=== PATIENT | male | born 1995 | race Caucasian/White ===

== ENCOUNTER 2017-04-19 23:18 | Emergency (ER) | payer OTHER ==
[~2017-04-19] VITALS: Ht 177.8 cm; Wt 82.7 kg
[2017-04-19 23:32] VITALS: TEMP 36.9; Ht 177.8 cm; Wt 82.7 kg
[2017-04-20 00:03] LABS: BASO % 0.3 %; BASO ABS # 0.03 K/uL (0-0.2); COMPLETE YES; HEMATOCRIT 44.8 % (42-52); IG% 0.3 %; LYMPH ABS # 3.81 K/uL (1.2-3.4); MEAN CELL VOLUME 89.1 fL (80-100); MEAN CORPUSCULAR HEMOGLOBIN 31.2 pg (25-34); MONO % 7.7 %; NEUT % 51.7 %; PLATELET COUNT 215 K/uL (130-400); RED BLOOD COUNT 5.03 M/uL (4.7-6.1); WHITE BLOOD COUNT 10.03 K/uL (4.8-10.8)
[2017-04-20 00:21] LABS: BUN/CREATININE RATIO 17.7 (10-20); CREATININE 1.29 mg/dl (0.60-1.40)
[2017-04-20 00:23] LABS: ALB/GLOB RATIO 1.1 (0.9-2)
[2017-04-20 01:13] LABS: URINE APPEARANCE CLEAR (CLEAR); URINE BILIRUBIN NEG (NEG); URINE COLOR YELLOW; URINE NITRITE NEG (NEG); URINE SPECIFIC GRAVITY 1.013 (1.000-1.030); UROBILINOGEN NEG (NEG); ZZUR CULT IF INDIC CLEAN CATCH NO
[2017-04-20 01:18] LABS: MANUAL MICROSCOPIC REQUIRED? NO; REVIEW REQ? NO
[2017-04-20 01:22] VITALS: BP 116/55; PULSE 80; O2SAT 95
[2017-04-20] MEDS ORDERED: KETOROLAC TROMETHAMINE 30 MG/ML VIAL IV STA (01:27)
--- NOTE | 2017-04-20 01:29 | EMERGENCY ROOM VISIT NOTE ---
History Report prepared by Rico: Isabela Pollard Under the Supervision of: Dr. Demetrice Casas D.O. First contact with patient: 23:41 Chief Complaint: ABDOMINAL PAIN Stated Complaint: PAIN IN LOWER STOMACH TO THE LEFT Nursing Triage Summary: pt c/o lower left abd pain for past 3 days and pain is increasing, History of Present Illness The patient is a 21 year old male who presents to the Emergency Room with complaints of intermittent LLQ abdominal pain starting 3 days ago. The pain started while he was working out at the gym. He notes that he notices the pain when he is sitting down. When he stands up, the pain decreases. The pain is always in the same spot. He denies any diarrhea, constipation, urinary symptoms , chills, back pain, cough, fever, vomiting, or cold symptoms. He does not have any medical problems. Source of History: patient Onset: 3 days ago Position: abdomen (LLQ) Quality: other (pain) Timing: intermittent Modifying Factors (Worsening): other (sitting) Modifying Factors (Relieving): other (standing) Associated Symptoms: No fevers, No chills, No cough, No vomiting, No back pain, No diarrhea, No urinary symptoms Note: Pt denies constipation. Review of Systems See HPI for pertinent positives & negatives. A total of 10 systems reviewed and were otherwise negative. Past Medical & Surgical Medical Problems: (1) No chronic problems Family History No pertinent family history stated. Social History Smoking Status: Never Smoker Marital Status: single Occupation Status: student Current/Historical Medications No Active Prescriptions or Reported Meds Allergies Coded Allergies: Grass (Unverified Allergy, Intermediate, HIVES, 04/19/17) Physical Exam Vital Signs Date Time Temp Pulse Resp B/P (MAP) Pulse Ox O2 Delivery O2 Flow Rate FiO2 04/20/17 01:22 80 116/55 95 Room Air 04/19/17 23:32 36.9 76 18 114/52 99 Room Air Physical Exam GENERAL: alert, well appearing, well nourished, no distress, non-toxic EYE EXAM: normal conjunctiva, PERRL and EOM's grossly intact OROPHARYNX: no exudate, no erythema, lips, buccal mucosa, and tongue normal and mucous membranes are moist NECK: supple, no nuchal rigidity, no adenopathy, non-tender LUNGS: Clear to auscultation. Normal chest wall mechanics HEART: no murmurs, S1 normal and S2 normal ABDOMEN: abdomen soft, reproducible left lateral abdominal pain, normo-active bowel sounds, no masses, no rebound or guarding. BACK: Back is symmetrical on inspection and there is no deformity, no midline tenderness, no CVA tenderness. SKIN: no rashes and no bruising UPPER EXTREMITIES: upper extremities are grossly normal. LOWER EXTREMITIES: No pitting edema. NEURO EXAM: Normal sensorium, cranial nerves II-XII grossly intact, normal speech, no gross weakness of arms, no gross weakness of legs. Medical Decision & Procedures ER Provider Diagnostic Interpretation: Xray results have been interpreted by me. KUB X-ray: Scattered air and stool. No definite SBO. No bony abnormality noted. Laboratory Results 04/19/17 23:50 Red Blood Count 5.03, Mean Corpuscular Volume 89.1, Mean Corpuscular Hemoglobin 31.2, Mean Corpuscular Hemoglobin Concent 35.0, Mean Platelet Volume 11.0, Neutrophils (%) (Auto) 51.7, Lymphocytes (%) (Auto) 38.0, Monocytes (%) (Auto) 7.7, Eosinophils (%) (Auto) 2.0, Basophils (%) (Auto) 0.3, Neutrophils # (Auto) 5.19, Lymphocytes # (Auto) 3.81, Monocytes # (Auto) 0.77, Eosinophils # (Auto) 0.20, Basophils # (Auto) 0.03 04/19/17 23:50 Test 04/19/17 23:50 04/20/17 01:00 White Blood Count 10.03 K/uL (4.8-10.8) Red Blood Count 5.03 M/uL (4.7-6.1) Hemoglobin 15.7 g/dL (14.0-18.0) Hematocrit 44.8 % (42-52) Mean Corpuscular Volume 89.1 fL (80-100) Mean Corpuscular Hemoglobin 31.2 pg (25-34) Mean Corpuscular Hemoglobin Concent 35.0 g/dl (32-36) Platelet Count 215 K/uL (130-400) Mean Platelet Volume 11.0 fL (7.4-10.4) Neutrophils (%) (Auto) 51.7 % Lymphocytes (%) (Auto) 38.0 % Monocytes (%) (Auto) 7.7 % Eosinophils (%) (Auto) 2.0 % Basophils (%) (Auto) 0.3 % Neutrophils # (Auto) 5.19 K/uL (1.4-6.5) Lymphocytes # (Auto) 3.81 K/uL (1.2-3.4) Monocytes # (Auto) 0.77 K/uL (0.11-0.59) Eosinophils # (Auto) 0.20 K/uL (0-0.5) Basophils # (Auto) 0.03 K/uL (0-0.2) RDW Standard Deviation 40.1 fL (36.4-46.3) RDW Coefficient of Variation 12.5 % (11.5-14.5) Immature Granulocyte % (Auto) 0.3 % Immature Granulocyte # (Auto) 0.03 K/uL (0.00-0.02) Anion Gap 7.0 mmol/L (3-11) Est Creatinine Clear Calc Drug Dose 92.7 ml/min Estimated GFR () 90.6 Estimated GFR (Non- 78.2 BUN/Creatinine Ratio 17.7 (10-20) Calcium Level 9.0 mg/dl (8.5-10.1) Total Bilirubin 0.4 mg/dl (0.2-1) Aspartate Amino Transf (AST/SGOT) 24 U/L (15-37) Alanine Aminotransferase (ALT/SGPT) 42 U/L (12-78) Alkaline Phosphatase 80 U/L (45-117) Total Protein 7.7 gm/dl (6.4-8.2) Albumin 4.1 gm/dl (3.4-5.0) Globulin 3.6 gm/dl (2.5-4.0) Albumin/Globulin Ratio 1.1 (0.9-2) Urine Color YELLOW Urine Appearance CLEAR (CLEAR) Urine pH 6.0 (4.5-7.5) Urine Specific [place] 1.013 (1.000-1.030) Urine Protein NEG (NEG) Urine Glucose (UA) NEG (NEG) Urine Ketones NEG (NEG) Urine Occult Blood NEG (NEG) Urine Nitrite NEG (NEG) Urine Bilirubin NEG (NEG) Urine Urobilinogen NEG (NEG) Urine Leukocyte Esterase NEG (NEG) Laboratory results per my review. Medications Administered Medications (Trade) Dose Ordered Sig/Hugo Route Start Time Stop Time Status Last Admin Dose Admin Ketorolac Tromethamine (Toradol Inj) 30 mg NOW STAT IV 04/20/17 01:27 04/20/17 01:28 DC 04/20/17 01:44 30 MG ED Course 2343: The patient was evaluated in room B7. A complete history and physical exam was performed. 0124: Upon reevaluation, the patient is feeling better. I discussed the findings and the treatment plan with the patient. He verbalizes agreement and understanding. He was discharged home. 0127: Toradol Inj 30 mg IV. Medical Decision Differential diagnoses includes but is not limited to gastritis, peptic ulcer disease, GERD, gallbladder disease, pancreatitis, small bowel obstruction, acute coronary syndrome, pericarditis, ischemic bowel, irritable bowel disease, irritable bowel syndrome, appendicitis, diverticulitis, malignancy, hernia, urinary tract infection, torsion, perforation, trauma, infectious. Patient well-appearing here despite complaints. Given reassuring labs and imaging after 3 days of pain, doubt other acute GI pathology. No symptoms to suggest pathology. Pain seems mostly related to change position. I feel more likely musculoskeletal in origin. Discussed with patient all results, follow up with family doctor, symptoms to watch and return for, he verbalized understanding was agreeable with plan. Medication Reconcilliation Current Medication List: was personally reviewed by me Blood Pressure Screening Patient's blood pressure: Normal blood pressure Blood pressure disposition: Did not require urgent referral Impression Primary Impression: Left lower quadrant pain Scribe Attestation The scribe's documentation has been prepared under my direction and personally reviewed by me in its entirety. I confirm that the note above accurately reflects all work, treatment, procedures, and medical decision making performed by me. Departure Information Dispostion Home / Self-Care Prescriptions No Active Prescriptions or Reported Meds Referrals No Doctor, Assigned (PCP) Patient Instructions My [facility] Additional Instructions Please avoid any heavy lifting or strenuous activity until you're feeling better. You may eat and drink as tolerated. If you have any worsening pain, develop diarrhea, vomiting, noticed blood in her urine, develop fevers or chills , or you have any other new concerns, please return the emergency room.
--- NOTE | 2017-04-20 07:48 | DIAGNOSTIC IMAGING REPORT ---
KUB CLINICAL HISTORY: Left-sided abdominal pain COMPARISON STUDY: No previous studies for comparison. FINDINGS: There are no abnormally dilated loops of large or small bowel. There are no transition zones to indicate bowel obstruction. There are no calcification suspicious for renal calculi. There is a right pelvic basin calcification, likely representing a phlebolith, given that the patient's pain is left-sided. IMPRESSION: No evidence of pathologic bowel dilatation Electronically signed by: Nikolay Epps M.D. 04/20/2017 7:47 AM Dictated Date/Time: 04/20/2017 7:46 AM
== END 2017-04-20 02:08 | disposition home or self-care (01) ==
LOC: C.EDB 23:19
DX: R10.32 Left lower quadrant pain (principal)